=== PATIENT | male | born 1950 | race Caucasian/White ===

== ENCOUNTER 2022-06-27 09:43 | Outpatient (CLI) | payer MEDICARE, SELFPAY ==
[2022-06-27 13:55] LABS: Albumin* 4.2 g/dL (3.3-5.0); Chloride* 98 mmol/L (96-114); Sodium* 136 mmol/L (135-149)
[2022-06-27 13:56] LABS: Potassium* 4.6 mmol/L (3.6-5.1)
[2022-06-27 13:57] LABS: Cholesterol* 146 mg/dL (90-199)
[2022-06-27 13:58] LABS: Alanine Aminotransferase* 28 U/L (4-50); Alkaline Phosphatase* 92 U/L (40-150); Aspartate Amino Transferase* 31 U/L (12-35); Bilirubin Total* 0.9 mg/dL (0.1-1.5); Blood Urea Nitrogen* 13 mg/dL (7-30); Carbon Dioxide* 32 mmol/L (20-32); Creatinine* 0.9 mg/dL (0.5-1.5); Estimated Glomerular Filt Rate 91 ml/min; Glucose* 92 mg/dL (60-115); Triglycerides* 159 mg/dL (40-149)
[2022-06-27 13:59] LABS: HDL Cholesterol* 42 mg/dL (>=40); LDL Cholesterol Calculated 72 mg/dL (<100)
== END 2022-06-27 09:44 | disposition home or self-care (01) ==
PROVIDERS: PCP Family Medicine; Visit Provider Family Medicine
DX: I10 Essential (primary) hypertension (principal); E78.00 Pure hypercholesterolemia, unspecified; I25.10 Atherosclerotic heart disease of native coronary artery without angina pectoris; E87.1 Hypo-osmolality and hyponatremia; Z12.5 Encounter for screening for malignant neoplasm of prostate
CPT/HCPCS: 80053; 80061; 84153

== ENCOUNTER 2022-08-08 09:10 | Outpatient (CLI) | payer MEDICARE, SELFPAY | END 2022-08-08 09:11 | disposition home or self-care (01) | LOC: NFLDREF 08-09 08:20 | PROVIDERS: PCP Family Medicine; Referring Provider Family Medicine; Visit Provider Internal Medicine | DX: I10 Essential (primary) hypertension (principal); I25.10 Atherosclerotic heart disease of native coronary artery without angina pectoris | CPT/HCPCS: 80048; 80061 ==

== ENCOUNTER 2023-08-10 11:46 | Outpatient (CLI) | payer MEDICARE, SELFPAY | END 2023-08-10 11:47 | disposition home or self-care (01) | LOC: LKVREF 11:48 | PROVIDERS: PCP Family Medicine; Visit Provider Family Medicine | DX: Z00.00 Encounter for general adult medical examination without abnormal findings (principal); E87.1 Hypo-osmolality and hyponatremia; I10 Essential (primary) hypertension; E78.00 Pure hypercholesterolemia, unspecified; N40.1 Benign prostatic hyperplasia with lower urinary tract symptoms; R35.1 Nocturia | CPT/HCPCS: 80053; 80061; G0103 ==

== ENCOUNTER 2024-08-12 09:09 | Outpatient (CLI) | payer MEDICARE, SELFPAY | END 2024-08-12 09:10 | disposition home or self-care (01) | PROVIDERS: PCP Family Medicine; Visit Provider Family Medicine | DX: E78.00 Pure hypercholesterolemia, unspecified (principal); E87.1 Hypo-osmolality and hyponatremia; I10 Essential (primary) hypertension; I25.10 Atherosclerotic heart disease of native coronary artery without angina pectoris; N40.1 Benign prostatic hyperplasia with lower urinary tract symptoms; R35.1 Nocturia; Z12.5 Encounter for screening for malignant neoplasm of prostate | CPT/HCPCS: 80053; 80061; G0103 ==

== ENCOUNTER 2024-08-19 09:20 | Outpatient (CLI) | payer MEDICARE, SELFPAY ==
--- NOTE | 2024-08-19 10:00 | CRLHL7_ITS ---
For Patients: As a result of the Century Cures Act, medical imaging exams and procedure reports are released immediately into your electronic medical record. You may view this report before your referring provider. If you have questions, please contact your health care provider. Indication: Personal history of nicotine dependence, 80 pack-year history, lung cancer screening Technique: Noncontrast low-dose CT of the chest with multiplanar reformats. Comparison: Chest radiograph performed 11/22/2015 Findings: Lungs: There is a 6 millimeter nodule within the right upper lobe. A few additional smaller noncalcified nodules are present. Calcified granulomas are present. Bibasilar atelectasis and/or scarring. Mediastinum: Calcified coronary arterial and aortic atherosclerosis. Lymph nodes: Calcified lymph nodes. Upper abdomen: Unremarkable. Soft tissues: Unremarkable. Bones: Degenerative changes of the spine and shoulders. Sequential thoracic vertebral bodies demonstrate chronic appearing height loss, may be due to chronic mild compression fractures. Impression: 1. Few scattered pulmonary nodules measure up to [address] Follow-up CT in 6 months recommended (Lung-RADS 3). 2. Calcified coronary arterial and aortic atherosclerosis. 3. Stigmata of chronic granulomatous disease. Please note that all CT scans at this facility use dose modulation, iterative reconstruction, and/or weight-based dosing when appropriate to reduce radiation dose to as low as reasonably achievable. Dictated by Donald Fitch MD @ 08/20/2024 7:15:50 PM (Electronically Signed)
== END 2024-08-19 09:21 | disposition home or self-care (01) ==
LOC: CT 09:23
PROVIDERS: PCP Family Medicine; Visit Provider Family Medicine
DX: Z12.2 Encounter for screening for malignant neoplasm of respiratory organs (principal); R91.8 Other nonspecific abnormal finding of lung field; I25.10 Atherosclerotic heart disease of native coronary artery without angina pectoris; I70.0 Atherosclerosis of aorta; Z87.891 Personal history of nicotine dependence; J44.9 Chronic obstructive pulmonary disease, unspecified
CPT/HCPCS: 71271